=== PATIENT | female | born 1950 | race Caucasian/White ===

== ENCOUNTER → 2019-05-17 | Outpatient (CLI) | payer OTHER ==
[~2019-05-17] MED LIST: ACETYLCYSTEINE; ADULT LOW DOSE81 MG; ASPIRIN325; CARVEDILOL6.25 MG; COREG; COREG PO; CVS FISH OIL 11 EAC3; FLAX OIL1000 MG; LISINOPRIL5 MG; PLAVIX 75 MG TA75 MG PO; VITAMIN D1000 UNI1; VITAMIN E400 UNIT; ZOCOR40 MG PO; [UNRECOGNIZED DRUG - OTHER]
== END ==
LOC: SJCVCIMAG 08:26
DX: I44.7 Left bundle-branch block, unspecified (principal); R00.0 Tachycardia, unspecified; I25.10 Atherosclerotic heart disease of native coronary artery without angina pectoris; I42.9 Cardiomyopathy, unspecified; I10 Essential (primary) hypertension; E78.5 Hyperlipidemia, unspecified; I65.23 Occlusion and stenosis of bilateral carotid arteries

== ENCOUNTER → 2019-11-22 | Outpatient (CLI) | payer OTHER | LOC: SJCVC 13:44 | PROVIDERS: ATTEND Internal Medicine | DX: R94.31 Abnormal electrocardiogram [ECG] [EKG] (principal); I25.10 Atherosclerotic heart disease of native coronary artery without angina pectoris; I42.9 Cardiomyopathy, unspecified; I10 Essential (primary) hypertension; I44.7 Left bundle-branch block, unspecified; E78.5 Hyperlipidemia, unspecified; I65.23 Occlusion and stenosis of bilateral carotid arteries ==

== ENCOUNTER → 2020-05-22 | Outpatient (CLI) | payer OTHER | LOC: SJCVC 12:42 | PROVIDERS: ATTEND Internal Medicine | DX: R94.31 Abnormal electrocardiogram [ECG] [EKG] (principal); I45.4 Nonspecific intraventricular block; I44.7 Left bundle-branch block, unspecified; I25.10 Atherosclerotic heart disease of native coronary artery without angina pectoris; I42.9 Cardiomyopathy, unspecified; I10 Essential (primary) hypertension; E78.5 Hyperlipidemia, unspecified; I65.23 Occlusion and stenosis of bilateral carotid arteries; K21.9 Gastro-esophageal reflux disease without esophagitis; E78.00 Pure hypercholesterolemia, unspecified; E03.9 Hypothyroidism, unspecified; E66.9 Obesity, unspecified; Z79.82 Long term (current) use of aspirin; Z79.899 Other long term (current) drug therapy; Z87.891 Personal history of nicotine dependence; Z68.39 Body mass index [BMI] 39.0-39.9, adult ==

== ENCOUNTER → 2020-11-20 | Outpatient (CLI) | payer OTHER | LOC: SJCVC 13:11 | PROVIDERS: ATTEND Internal Medicine | DX: R94.31 Abnormal electrocardiogram [ECG] [EKG] (principal); I45.4 Nonspecific intraventricular block; I25.10 Atherosclerotic heart disease of native coronary artery without angina pectoris; I42.9 Cardiomyopathy, unspecified; I10 Essential (primary) hypertension; I44.7 Left bundle-branch block, unspecified; E78.5 Hyperlipidemia, unspecified; I65.23 Occlusion and stenosis of bilateral carotid arteries; K21.9 Gastro-esophageal reflux disease without esophagitis; E03.9 Hypothyroidism, unspecified; Z87.891 Personal history of nicotine dependence; Z72.89 Other problems related to lifestyle; Z79.82 Long term (current) use of aspirin; Z79.899 Other long term (current) drug therapy; Z88.8 Allergy status to other drugs, medicaments and biological substances; Z85.72 Personal history of non-Hodgkin lymphomas; Z95.818 Presence of other cardiac implants and grafts ==